=== PATIENT | female | born 1935 ===

== ENCOUNTER 2018-04-15 10:57 | Outpatient (CLI) | payer OTHER | END 2018-04-15 11:14 | disposition home or self-care (01) | LOC: LAB 10:57 | DX: R22.0 Localized swelling, mass and lump, head (principal); Z51.81 Encounter for therapeutic drug level monitoring ==

== ENCOUNTER 2018-07-12 08:14 | Emergency (ER) | payer OTHER ==
[~2018-07-12] VITALS: Ht 170.2 cm; Wt 66.7 kg
== END 2018-07-12 10:05 | disposition home or self-care (01) ==
LOC: ER 08:14
DX: M60.851 Other myositis, right thigh (principal)

== ENCOUNTER → 2018-08-08 | Emergency (ER) | payer OTHER | END | disposition left against medical advice (07) | LOC: ER 08:51 | DX: Z53.20 Procedure and treatment not carried out because of patient's decision for unspecified reasons (principal) ==